=== PATIENT | female | born 1980 | race Caucasian/White ===

== ENCOUNTER → 2017-05-11 | Day surgery (SDC) | payer BC ==
[~2017-05-11] MED LIST: ADDERALL 15 MG15 M1 PO; B COMPLEX1 CA1 PO; CLARITIN10 M3 PO; FLEXERIL10 MG PO; IBUPROFEN800 MG PO; KEFLEX500 M1 PO; LEXAPRO20 MG PO; MOTRIN400 M1 PO; MYRBETRIQ25 MG PO; TOPAMAX PO; TUMS200 MG; WELLBUTRIN XL PO
--- NOTE | ~2017-05-11 | OR ---
Unit #: [id number] #: [id number] Patient: JOS RUIZ [id number] [address] [place], [place] [address] [id number] O MR#: [id number] NAME: JOS RUIZ ROOM: Date of Procedure: 05/11/2017 Admission Date: 05/11/2017 Surgeon: Beto Warren M.D. : 1980 Attending Physician: Beto Warren M.D. Primary Care Physician: Francisca Bergeron A.P.R.N. OPERATIVE REPORT PREOPERATIVE DIAGNOSES Urinary frequency and urgency, urge incontinence, dysuria, and postvoid pain. POSTOPERATIVE DIAGNOSES Urinary frequency and urgency, urge incontinence, dysuria, and postvoid pain. PROCEDURE PERFORMED Cystoscopy with hydrodistention and bladder biopsy. ANESTHESIA General with local supplementation. INDICATIONS FOR PROCEDURE This is a 36-year-old woman with previously refractory symptoms as outlined above, has increased symptoms with some foods known to worsen interstitial cystitis and she presents for evaluation of possible interstitial cystitis. In the preoperative holding area, she did mention some improvement on Myrbetriq, but not resolution of symptoms. She requested to proceed with the evaluation. DESCRIPTION OF PROCEDURE The patient was given preoperative antibiotics and satisfactory general anesthesia. In the dorsal lithotomy position, routine prep and drape were performed. The 21-Romanian rigid cystoscope was introduced with a 30-degree lens and video noting the bladder to be reasonably empty. It was then filled and examined with a 30-degree lens. 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 Normal orifices and healthy mucosa throughout including additional inspection with a 70-degree lens. At this point, hydrodistention was performed to 3 feet of pressure with water for 5 minutes. I sensed that the patient had already exceeded of normal bladder capacity, however and discontinued the filling for fear of over distending the bladder. After the hydrodistention was complete, I drained the bladder of 800 mL of clear urine. The bladder was re-distended and there was no evidence of glomerulation. With a 3-mm cold cup forceps, a random bladder biopsy was taken of the mucosa above the trigone on the posterior wall. This was fulgurated with a Bugbee electrode. The bladder was drained and a Uro-Jet was applied to complete the procedure, which was well tolerated. Unit #: [id number] #: [id number] Patient: JOS RUIZ Dictated by... Mikhail Helms/lucy TD: 05/11/2017 15:57 JOB #: [id number] OPERATIVE REPORT Page 1 of 1 X Beto Warren MD PROCEDURE OPERATIVE NOTE
[2017-05-11 07:32] LABS: BASOPHIL# 0.1 X10e3 (0-0.3); BASOPHIL% 0.7 % (0-2.5); EOSINOPHIL# 0.2 X10e3 (0-0.7); HEMATOCRIT 36.5 % (35.0-45.0); HEMOGLOBIN 12.6 gm/dL (12.0-16.0); LYMPHOCYTE# 1.5 X10e3 (1.0-3.5); LYMPHOCYTE% 18.3 % (17.0-45.0); MEAN CELL VOLUME 86.8 FL (83-96); MEAN CORPUSCULAR HEMOGLOBIN 29.9 PG (28-34); MEAN CORPUSCULAR HGB CONC 34.4 g/dL (30-36); MEAN PLATELET VOLUME 8.3 FL (6.5-11.5); MONOCYTE# 0.5 X10e3 (0-1.0); PLATELET COUNT 183 X10e3 (140-420); RED BLOOD COUNT 4.21 X10e (3.90-5.30); WHITE BLOOD COUNT 8.2 X10e3 (4.0-10.5)
[2017-05-11 07:34] LABS: DIFF IND YES
[2017-05-11 07:52] LABS: PLATELET ESTIMATE NORMAL (NORMAL)
== END | disposition home or self-care (01) ==
LOC: CSUR 06:55
PROVIDERS: Urology
DX: N30.90 Cystitis, unspecified without hematuria (principal); N39.41 Urge incontinence; R35.0 Frequency of micturition; K21.9 Gastro-esophageal reflux disease without esophagitis; Z88.6 Allergy status to analgesic agent; Z88.8 Allergy status to other drugs, medicaments and biological substances; Z79.899 Other long term (current) drug therapy; Z90.49 Acquired absence of other specified parts of digestive tract
CPT/HCPCS: 84703; 85025; 88305; J0690; J1100; J2250; J2405; J3010